=== PATIENT | female | born 1950 | race Caucasian/White ===

== ENCOUNTER 2016-09-07 10:42 | Observation (INO) | payer OTHER, MEDICARE ==
[~2016-09-07] VITALS: Ht 157.5 cm; Wt 77.1 kg
[~2016-09-07 10:42] MED LIST: AMITIZA24 MCG PO; CENTRUM SILVER1 EAC3 PO; CHILDREN'S ASPI81 M1 PO; CRESTOR10 M1 PO; DICLOFENAC SODI75 M1 PO; EPIPEN 2-PAK1 MG/ML IM; FLUTICASONE PRO16 GM NASB; HYDROCHLOROTHIA25 M1 PO; ISOSORBIDE MONO30 M1 PO; MAGNESIUM250 M2 PO; OMEPRAZOLE40 M1 PO; PEPCID40 MG PO; PREDNISONE10 MG PO; SUPER B COMPLE1 EACH PO; VITAMIN D2000 UNI1 PO
--- NOTE | 2016-09-07 10:50 | NUR ---
PT STATES THAT FOR THE PAST WEEK SHE FELT LIKE L SIDE OF FACE WAS SWOLLEN, NOT NOTED AT TRIAGE, ALSO STATES THAT SINCE LAST SATURDAY SHE FEELS NUMBNESS TO L SIDE MOUTH. NEUROS INTACT. PT STATES THAT SHE HAS BEEN UNDER ALOT OF STRESS
--- NOTE | 2016-09-07 11:14 | NUR ---
MONICA RODRÍGUEZ TO BEDSIDE FOR PT EVAL.
[2016-09-07] MEDS ORDERED: AMITIZA24 MC1 PO (11:19)
[2016-09-07] MEDS ORDERED: ATORVASTATIN CA40 M1 PO (11:19)
--- NOTE | 2016-09-07 11:20 | ED NEURO DEFICIT/STROKE ---
History of Present Illness General Chief Complaint: General Adult Stated Complaint: L SIDE FACIAL ?SWELLING Source: patient Exam Limitations: no limitations Vital Signs & Intake/Output Vital Signs & Intake/Output ED Intake and Output 09/10 0000 09/09 1200 Intake Total 400 800 Output Total Balance 400 800 Intake, Oral 400 800 Allergies Coded Allergies: venom-honey bee (Severe, ANAPHYLAXIS 09/07/16) codeine (HIVES 09/07/16) tamoxifen (UNKNOWN 09/07/16) Triage Note: PT STATES THAT FOR THE PAST WEEK SHE FELT LIKE L SIDE OF FACE WAS SWOLLEN, NOT NOTED AT TRIAGE, ALSO STATES THAT SINCE LAST SATURDAY SHE FEELS NUMBNESS TO L SIDE MOUTH. NEUROS INTACT. Triage Nurses Notes Reviewed? yes HPI: This patient is a 66-year-old femalewith a past medical history including hypertension who presented to the emergency department today accompanied by her daughter for evaluation of left-sided facial numbness and tingling. She reported that she first felt tingling near the corner of her mouth last Saturday. She reported that she did not feel the tingling again until today. She reported to the area feels numb and she has been drooling. The patient denied any headaches. No trauma. The patient reported that she does get blurry vision at the end of the day which is baseline for her. She also reported baseline chest pain and shortness of breath. She does have a pacemaker. The patient denied any arm pain. She did report some numbness and tingling in her left arm. The patient denied any abdominal pain, nausea, vomiting, palpitations, jaw pain, back pain, or any other associated symptoms. (MARCELLA ANN,MARCOS) Reconcile Medications Aspirin (Children's Aspirin) 81 MG TAB.CHEW 1 TAB PO DAILY HEART HEALTH ( Reported) Atorvastatin Calcium 40 MG TABLET 1 TAB PO DAILY CHOLESTEROL (Reported) B Complex With Vitamin C (Super B Complex-Vitamin C) 1 EACH TABLET 1 TAB PO DAILY SUPPLEMENT (Reported) Cholecalciferol (Vitamin D3) (Vitamin D) 2,000 UNIT TABLET 1 TAB PO DAILY SUPPLEMENT (Reported) Epinephrine 0.3 MG/0.3 ML AUTO.INJCT 1 INJ IM AD PRN ANAPHALAXIS (Reported) Fluticasone Propionate 50 MCG/ACTUATION SPRAY.SUSP 2 SPRAY NASB DAILY ALLERGIES (Reported) Hydrochlorothiazide 25 MG TABLET 1 TAB PO DAILY WATER PILL (Reported) Isosorbide Mononitrate (Isosorbide Mononitrate ER) 30 MG TAB.ER.24H 1 TAB PO DAILY HEART (Reported) Lubiprostone (Amitiza) 24 MCG CAPSULE 1 CAP PO BID GI (Reported) Magnesium Oxide (Magnesium) 250 MG TABLET 1 TAB PO DAILY SUPPLEMENT (Reported ) Multivit-Min/FA/Lycopen/Lutein (Centrum Silver Tablet) 0.4 MG-300 MCG-250 MCG TABLET 1 TAB PO DAILY SUPPLEMENT (Reported) Omeprazole 40 MG CAPSULE.DR 1 CAP PO DAILY GI (Reported) Prednisone 20 MG TABLET 3 TAB PO DAILY nerve swelling (bells palsy) (SHADIA MIX,NEVAEH) Past History Travel History Traveled to [place] past 21 day No Medical History Any Pertinent Medical History? 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 No (MARCOS NARANJO PA-C) Review of Systems Review of Systems Constitutional: Reports: no symptoms. EENTM: Reports: no symptoms. Respiratory: Reports: see HPI. Cardiovascular: Reports: see HPI. GI: Reports: no symptoms. Genitourinary: Reports: no symptoms. Musculoskeletal: Reports: no symptoms. Skin: Reports: no symptoms. Neurological/Psychological: Reports: see HPI. All Other Systems: Reviewed and Negative (MARCOS NARANJO PA-C) Physical Exam Physical Exam General Appearance: well developed/nourished, no apparent distress, alert, awake Cranial Nerves: normal hearing, normal speech, PERRL Comments: Well-developed well-nourished person in no acute distress HEENT: Normal EENT exam, head normocephalic/atraumatic, moist mucous membranes PERRLA bilaterally. EOMI bilaterally with no nystagmus Neck: Supple, no lymphadenopathy Back: Normal gait Cardiovascular: Regular rate and rhythm with no murmurs, rubs, or gallops Respiratory: Chest nontender. No respiratory distress. Breath sounds clear to auscultation bilaterally with no wheezes, rales, or rhonchi Extremity: Normal and equal pulses. Capillary refill less than 2 seconds Neuro: Alert oriented x3, motor sensory normal, cranial nerves II through XII grossly intact. No aphasia. No facial droop. No unilateral weakness. 5 out of 5 muscular strength in all extremities. No pronator drift Skin: No appreciable rash on exposed skin, skin is warm and dry. Psych: Mood and affect is normal Core Measures CVA/TIA Diagnosis: No Severe Sepsis Present: No Septic Shock Present: No (MARCELLA ANN,MARCOS) Progress Differential Diagnosis: Azevedo's Palsy, drug intoxication, electrolyte imbalance, encephalitis, hypoglycemia, intracranial Hem., intracranial mass/tumor, seizure disorder, stroke, subarachnoid Hem., paresthesia, B12 deficiency Plan of Care: Orders Procedure Date/time Status Discharge Patient 09/09 UNK Active Diagnostic Imaging: Viewed by Me: CT Scan, Ultrasound. Discussed w/RAD: CT Scan, Ultrasound. Radiology Impression: PATIENT: HAYDEN DE PAZ PRESENT AGE: 66 PATIENT ACCOUNT NO: [id number] : 48 LOCATION: [facility] ORDERING PHYSICIAN: MARCOS NARANJO PA-C SERVICE DATE: 09/07/161115 EXAM TYPE: CAT - CT HEAD WO IV CONTRAST EXAMINATION: CT HEAD WITHOUT CONTRAST CLINICAL INFORMATION: Left-sided facial numbness. Rule out intracranial hemorrhage or mass. COMPARISON: CT head of 07/16/2011. TECHNIQUE: Contiguous axial imaging was performed from the skull base to vertex without intravenous administration of contrast. DLP: 600.71 mGy-cm FINDINGS: There is no evidence of acute intracranial hemorrhage or territorial infarction. No abnormal mass effect or midline shift is seen. Dalal to white matter differentiation is well preserved. No extra-axial fluid collections are identified. The ventricles are normal in size. Bilateral periventricular and subcortical white matter patchy low-attenuation regions are noted, most likely representing sequelae of chronic microangiopathy. A 0.5 cm hypodense lesion in the right basal ganglia (series 2, image 22) may represent a chronic lacunar infarct or a dilated perivascular CSF space. The osseous structures and soft tissues are normal. The mastoid air cells and visualized portions of the paranasal sinuses are well aerated. IMPRESSION: 1. No acute intracranial abnormality, specifically there is no evidence of acute intracranial hemorrhage or territorial infarction. 2. White matter changes of mild chronic microangiopathy. DICTATED BY: PRANAV ORELLANA MD DATE/TIME DICTATED:1157 BINDERY LEADPERSON:MARTHA DATE/TIME TRANSCRIBED:09/07/161157 CONFIDENTIAL, DO NOT COPY WITHOUT APPROPRIATE AUTHORIZATION. <Electronically signed in Other Vendor System> SIGNED BY: PRANAV ORELLANA MD 09/07/16 1212, PATIENT: HAYDEN DE PAZ PRESENT AGE: 66 PATIENT ACCOUNT NO: [id number] : 48 LOCATION: [facility] ORDERING PHYSICIAN: MARCOS NARANJO PA-C SERVICE DATE: 09/07/16 EXAM TYPE: US - US-CAROTID- VERTEBRAL DOPPLER EXAMINATION: DUPLEX BILATERAL CAROTID ULTRASOUND CLINICAL INFORMATION: Left facial numbness. COMPARISON: None. TECHNIQUE: Real-time ultrasound and Doppler techniques (integrating B-mode 2D vascular images, Doppler spectral analysis and color flow Doppler imaging) were utilized to interrogate the extracranial carotid and vertebral arteries bilaterally. FINDINGS: Right side: 1. There is mild hyperechoic plaque in the ECA/ICA region. 2. The common carotid artery velocity is 80 cm/s. 3. The proximal internal carotid artery velocities are 57 cm/s systolic and 17 cm/s diastolic. 4. The external carotid artery velocity is 73 cm/s. Left side: 1. There is mild hyperechoic plaque in the ECA/ICA region. 2. The common carotid artery velocity is 77 cm/s. 3. The proximal internal carotid artery velocities are 98 cm/s systolic and 41 cm/s diastolic. 4. The external carotid artery velocity is 71 cm /s. ADDITIONAL FINDINGS: 1. The vertebral arteries show antegrade flow. 2. The brachial artery pressures are symmetric. IMPRESSION: 1. RIGHT: Minimal, nonhemodynamically significant stenosis of the proximal right internal carotid artery corresponding to a 0-49% stenosis by velocity criteria. 2. LEFT: Minimal, nonhemodynamically significant stenosis of the proximal left internal carotid artery corresponding to a 0-49% stenosis by velocity criteria. 3. Antegrade flow is seen via the bilateral vertebral arteries. DICTATED BY: NADEGE HERMAN MD DATE /TIME DICTATED:09/07/161522 BINDERY LEADPERSON:MARTHA DATE/TIME TRANSCRIBED: 09/07/161522 CONFIDENTIAL, DO NOT COPY WITHOUT APPROPRIATE AUTHORIZATION. < Electronically signed in Other Vendor System> SIGNED BY: NADEGE HERMAN MD 09/07/16 1690 Initial ED EKG: normal axis, no ST T wave changes, ATRIAL PACED, 60 BPM Comments: 09/07/2016 1:23:03 PM: I discussed this patient with Dr. Reyna. He is having an and left-sided facial numbness and reported left hand numbness and tingling, would like to keep this patient as an observation for a neurology consultation. 09/07/2016 1:26:06 PM: I discussed this patient with case management. He reported this patient does seem to fit criteria for a telemetry/neuro observation for further evaluation. He does not believe this patient will need admission criteria. He reported that he will be in to speak to the patient about this momentarily. 09/07/2016 2:38:23 PM: I spoke to on-call neurologist, Dr. Guzman. He suggested getting carotid Dopplers and he will see this patient for a consultation in the morning. (MARCOS NARANJO PA-C) Departure Departure Disposition: STILL A PATIENT Condition: Stable Clinical Impression Primary Impression: Left facial numbness Referrals: BERNADETTE FISHER MD (PCP/Family) Departure Forms: Customer Survey General Discharge Information Observation Note Spoke With: TIGIST BAUMANN MD Physician Advisor Notified: PHANI MIX,BALJINDER Paz Place Patient In: Non-ED OBS Care Area Rationale for Observation: My rational for observation is as follows [this patient is a 66-year-old female who presented to the emergency department today for evaluation of left facial numbness. And observation for further evaluation, neurology consultation, transient labs, and close monitoring.]. (MARCOS NARANJO PA-C) Departure Prescriptions: Current Visit Scripts Prednisone 3 TAB PO DAILY #21 TAB PA/DIGITAL COORDINATOR Co-Sign Statement Statement: ED Attending supervision documentation- [X] I saw and evaluated the patient. I have also reviewed all the pertinent lab results and diagnostic results. I agree with the findings and the plan of care as documented in the PA's/DIGITAL COORDINATOR's documentation. [X] I have reviewed the ED Record and agree with the PA's/DIGITAL COORDINATOR's documentation. [] Additions or exceptions (if any) to the PAs/DIGITAL COORDINATOR's note and plan are summarized below: [] (SHADIA MIX,NEVAEH) (Motrin) Ketorolac 7.5 MG Q6P PRN 09/07 1815 AC Tromethamine (Toradol) Laboratory Tests 09/07/16 1120: Troponin I Cancelled 09/07/16 1120: Anion Gap 9, Estimated GFR > 60, BUN/Creatinine Ratio 30.0 H, Glucose 104 H, Calcium 9.5, Total Bilirubin 0.3, AST 25, ALT 38, Alkaline Phosphatase 66, Troponin I < 0.01, Rmv-[id number]-[id number] Pept 156 H, Total Protein 6.8, Albumin 4.0 , Globulin 2.8, Albumin/Globulin Ratio 1.4, Vitamin B12 969 H, TSH 1.250, Free T4 0.94, CBC w Diff NO MAN DIFF REQ, RBC 4.79, MCV 87.8, MCH 29.2, RDW 14.2, MPV 7.1 L, Gran % 60.1, Lymphocytes % 28.5, Monocytes % 8.2, Eosinophils % 2.7, Basophils % 0.5, Absolute Granulocytes 3.9, Absolute Lymphocytes 1.9, Absolute Monocytes 0.5, Absolute Eosinophils 0.2, Absolute Basophils 0, PUBS MCHC 33.3 09/07/16 1115: Vitamin B12 Cancelled Diagnostic Imaging: Viewed by Me: CT Scan, Ultrasound. Discussed w/RAD: CT Scan, Ultrasound. Radiology Impression: PATIENT: HAYDEN DE PAZ PRESENT AGE: 66 PATIENT ACCOUNT NO: [id number] : 48 LOCATION: [facility] ORDERING PHYSICIAN: MARCOS NARANJO PA-C SERVICE DATE: 09/07/16 EXAM TYPE: CAT - CT HEAD WO IV CONTRAST EXAMINATION: CT HEAD WITHOUT CONTRAST CLINICAL INFORMATION: Left-sided facial numbness. Rule out intracranial hemorrhage or mass. COMPARISON: CT head of 07/16/2011. TECHNIQUE: Contiguous axial imaging was performed from the skull base to vertex without intravenous administration of contrast. DLP: 600.71 mGy-cm FINDINGS: There is no evidence of acute intracranial hemorrhage or territorial infarction. No abnormal mass effect or midline shift is seen. Dalal to white matter differentiation is well preserved. No extra-axial fluid collections are identified. The ventricles are normal in size. Bilateral periventricular and subcortical white matter patchy low-attenuation regions are noted, most likely representing sequelae of chronic microangiopathy. A 0.5 cm hypodense lesion in the right basal ganglia (series 2, image 22) may represent a chronic lacunar infarct or a dilated perivascular CSF space. The osseous structures and soft tissues are normal. The mastoid air cells and visualized portions of the paranasal sinuses are well aerated. IMPRESSION: 1. No acute intracranial abnormality, specifically there is no evidence of acute intracranial hemorrhage or territorial infarction. 2. White matter changes of mild chronic microangiopathy. DICTATED BY: PRANAV ORELLANA MD DATE/TIME DICTATED:1157 BINDERY LEADPERSON:MARTHA DATE/TIME TRANSCRIBED:09/07/161157 CONFIDENTIAL, DO NOT COPY WITHOUT APPROPRIATE AUTHORIZATION. <Electronically signed in Other Vendor System> SIGNED BY: PRANAV ORELLANA MD 09/07/16 1212, PATIENT: HAYDEN DE PAZ PRESENT AGE: 66 PATIENT ACCOUNT NO: [id number] : 48 LOCATION: [facility] ORDERING PHYSICIAN: MARCOS NARANJO PA-C SERVICE DATE: 09/07/16 EXAM TYPE: US - US-CAROTID- VERTEBRAL DOPPLER EXAMINATION: DUPLEX BILATERAL CAROTID ULTRASOUND CLINICAL INFORMATION: Left facial numbness. COMPARISON: None. TECHNIQUE: Real-time ultrasound and Doppler techniques (integrating B-mode 2D vascular images, Doppler spectral analysis and color flow Doppler imaging) were utilized to interrogate the extracranial carotid and vertebral arteries bilaterally. FINDINGS: Right side: 1. There is mild hyperechoic plaque in the ECA/ICA region. 2. The common carotid artery velocity is 80 cm/s. 3. The proximal internal carotid artery velocities are 57 cm/s systolic and 17 cm/s diastolic. 4. The external carotid artery velocity is 73 cm/s. Left side: 1. There is mild hyperechoic plaque in the ECA/ICA region. 2. The common carotid artery velocity is 77 cm/s. 3. The proximal internal carotid artery velocities are 98 cm/s systolic and 41 cm/s diastolic. 4. The external carotid artery velocity is 71 cm /s. ADDITIONAL FINDINGS: 1. The vertebral arteries show antegrade flow. 2. The brachial artery pressures are symmetric. IMPRESSION: 1. RIGHT: Minimal, nonhemodynamically significant stenosis of the proximal right internal carotid artery corresponding to a 0-49% stenosis by velocity criteria. 2. LEFT: Minimal, nonhemodynamically significant stenosis of the proximal left internal carotid artery corresponding to a 0-49% stenosis by velocity criteria. 3. Antegrade flow is seen via the bilateral vertebral arteries. DICTATED BY: NADEGE HERMAN MD DATE /TIME DICTATED:09/07/161522 BINDERY LEADPERSON:MARTHA DATE/TIME TRANSCRIBED: 09/07/161522 CONFIDENTIAL, DO NOT COPY WITHOUT APPROPRIATE AUTHORIZATION. < Electronically signed in Other Vendor System> SIGNED BY: NDAEGE HERMAN MD 09/07/16 1530 Initial ED EKG: normal axis, no ST T wave changes, ATRIAL PACED, 60 BPM Comments: 09/07/2016 1:23:03 PM: I discussed this patient with Dr. Reyna. He is having an and left-sided facial numbness and reported left hand numbness and tingling, would like to keep this patient as an observation for a neurology consultation. 09/07/2016 1:26:06 PM: I discussed this patient with case management. He reported this patient does seem to fit criteria for a telemetry/neuro observation for further evaluation. He does not believe this patient will need admission criteria. He reported that he will be in to speak to the patient about this momentarily. 09/07/2016 2:38:23 PM: I spoke to on-call neurologist, Dr. Guzman. He suggested getting carotid Dopplers and he will see this patient for a consultation in the morning. Departure Departure Disposition: STILL A PATIENT Condition: Stable Clinical Impression Primary Impression: Left facial numbness Referrals: BERNADETTE FISHER MD (PCP/Family) Departure Forms: Customer Survey General Discharge Information Observation Note Spoke With: TIGIST BAUMANN MD Physician Advisor Notified: PHANI MIX,BALJINDER Paz Place Patient In: Non-ED OBS Care Area Rationale for Observation: My rational for observation is as follows [this patient is a 66-year-old female who presented to the emergency department today for evaluation of left facial numbness. And observation for further evaluation, neurology consultation, transient labs, and close monitoring.].
[2016-09-07] MEDS ORDERED: EPINEPHRIN0.3 MG/0.1 IM (11:23)
[2016-09-07 11:45] LABS: ABSOLUTE BASOPHIL COUNT 0 /CUMM (0.0-0.2); ABSOLUTE EOSINOPHIL COUNT 0.2 /CUMM (0.0-0.7); ABSOLUTE GRANULOCYTE CT 3.9 /CUMM (1.4-6.5); ABSOLUTE LYMPH COUNT 1.9 /CUMM (1.2-3.4); ABSOLUTE MONOCYTE COUNT 0.5 /CUMM (0.10-0.60); BASOPHIL % 0.5 % (0.0-2.0); EOSINOPHIL % 2.7 % (0-5); GRANULOCYTE % 60.1 % (42.2-75.2); HEMATOCRIT 42.1 % (37-47); MEAN CORPUSCULAR HGB 29.2 PG (27.0-31.0); MEAN CORPUSCULAR HGB CONC 33.3 G/DL (33.0-37.0); MEAN CORPUSCULAR VOLUME 87.8 FL (81.0-99.0); MEAN PLATELET VOLUME 7.1 FL (7.4-10.4); PLATELET COUNT 272 /CUMM (130-400); RBC DISTRIBUTION WIDTH 14.2 % (11.5-14.5); RED BLOOD CELL CT 4.79 /CUMM (4.20-5.40); WHITE BLOOD CELL COUNT 6.6 /CUMM (4.8-10.8)
--- NOTE | 2016-09-07 11:51 | NUR ---
PT TO AND FROM CAT SCAN BY STRETCHER. AWAITING RESULTS. EKG IN PROGRESS.
--- NOTE | 2016-09-07 12:12 | CT SCAN REPORT ---
EXAMINATION: CT HEAD WITHOUT CONTRAST CLINICAL INFORMATION: Left-sided facial numbness. Rule out intracranial hemorrhage or mass. COMPARISON: CT head of 07/16/2011. TECHNIQUE: Contiguous axial imaging was performed from the skull base to vertex without intravenous administration of contrast. DLP: 600.71 mGy-cm FINDINGS: There is no evidence of acute intracranial hemorrhage or territorial infarction. No abnormal mass effect or midline shift is seen. Dalal to white matter differentiation is well preserved. No extra-axial fluid collections are identified. The ventricles are normal in size. Bilateral periventricular and subcortical white matter patchy low-attenuation regions are noted, most likely representing sequelae of chronic microangiopathy. A 0.5 cm hypodense lesion in the right basal ganglia (series 2, image 22) may represent a chronic lacunar infarct or a dilated perivascular CSF space. The osseous structures and soft tissues are normal. The mastoid air cells and visualized portions of the paranasal sinuses are well aerated. IMPRESSION: 1. No acute intracranial abnormality, specifically there is no evidence of acute intracranial hemorrhage or territorial infarction. 2. White matter changes of mild chronic microangiopathy.
--- NOTE | 2016-09-07 13:39 | NUR ---
PT RESTING ON STRETCHER, OFFERING NO COMPLAINTS OR NEEDS AT THIS TIME. VSS. AWAITING CASE MANAGEMENT.
--- NOTE | 2016-09-07 15:30 | ULTRASOUND REPORT ---
EXAMINATION: DUPLEX BILATERAL CAROTID ULTRASOUND CLINICAL INFORMATION: Left facial numbness. COMPARISON: None. TECHNIQUE: Real-time ultrasound and Doppler techniques (integrating B-mode 2D vascular images, Doppler spectral analysis and color flow Doppler imaging) were utilized to interrogate the extracranial carotid and vertebral arteries bilaterally. FINDINGS: Right side: 1. There is mild hyperechoic plaque in the ECA/ICA region. 2. The common carotid artery velocity is 80 cm/s. 3. The proximal internal carotid artery velocities are 57 cm/s systolic and 17 cm/s diastolic. 4. The external carotid artery velocity is 73 cm/s. Left side: 1. There is mild hyperechoic plaque in the ECA/ICA region. 2. The common carotid artery velocity is 77 cm/s. 3. The proximal internal carotid artery velocities are 98 cm/s systolic and 41 cm/s diastolic. 4. The external carotid artery velocity is 71 cm/s. ADDITIONAL FINDINGS: 1. The vertebral arteries show antegrade flow. 2. The brachial artery pressures are symmetric. IMPRESSION: 1. RIGHT: Minimal, nonhemodynamically significant stenosis of the proximal right internal carotid artery corresponding to a 0-49% stenosis by velocity criteria. 2. LEFT: Minimal, nonhemodynamically significant stenosis of the proximal left internal carotid artery corresponding to a 0-49% stenosis by velocity criteria. 3. Antegrade flow is seen via the bilateral vertebral arteries.
--- NOTE | 2016-09-07 15:44 | NUR ---
CASE MANAGEMENT TO BEDSIDE.
--- NOTE | 2016-09-07 15:55 | NUR ---
FOOD TRAY PROVIDED TO PT.
--- NOTE | 2016-09-07 16:32 | History & Physical ---
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 She claims that she started having left-sided facial numbness, localized to the angle of the mouth, constant in nature, associated with drooling of saliva, swelling in the cheek, eye lids, facial asymmetry.She also dropped breakfast in morning today. Sometimes she feels nauseated. She was also feeling that her legs were swollen since last 1 day. Denies recent ear infection, sinusitis, changes in the hearing , changes in the vision, episodes of loss of consciousness, seizures, weakness in any part of the body, neck pain,bumps in the neck or axilla, incontinence of stool and urine, chest pain, shortness of breath. She also states that she had episodes of dizziness, lightheadedness and tendency to fall towards the left side since May 2016. Even she had one episode of tripping and falling in May, but she did not had any trauma. She also had episodes of tingling and numbness in the left hand and it was told by her oncologist. 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 She also has episodes of blurry vision which increase at the end of the day.She uses 3 pillows regularly, she feels SOB after rising stairs and on lying down. Family history -hypertension in both parents Personal history -socially drinks alcohol, no smoking Allergies/Medications Allergies: Coded Allergies: venom-honey bee (Severe, ANAPHYLAXIS 09/07/16) codeine (HIVES 09/07/16) tamoxifen (UNKNOWN 09/07/16) Past History Travel History Traveled to [place] past 21 day No Medical History Neurological: NONE EENT: NONE Cardiovascular: hypertension, hyperlipidemia Respiratory: NONE Gastrointestinal: GERD Hepatic: NONE Renal: NONE Musculoskeletal: NONE Psychiatric: NONE Endocrine: NONE Blood Disorders: NONE Cancer(s): breast cancer Surgical History Surgical History: hernia repair-incisional, hysterectomy, lumpectomy, pacemaker Past Family/Social History Family History Relations & Conditions if any FATHER MOTHER Relation not specified for: FHx: hypertension Psychosocial History Services at Home: None Smoking Status: Never Smoked ETOH Use: occasional use Illicit Drug Use: denies illicit drug use Functional Ability ADLs Independent: dressing, eating, toileting, bathing. Review of Systems Review of Systems Constitutional: Reports: weakness. Denies: fever. EENTM: Reports: blurred vision. Denies: eye pain, eye drainage. Cardiovascular: Reports: edema, orthopena, palpitations, peripheral edema. Denies: chest pain. Respiratory: Denies: no symptoms. GI: Denies: no symptoms. Genitourinary: Denies: no symptoms. Skin: Reports: change in skin color. Neurological/Psychological: Reports: numbness, paresthesia, tingling. Denies: anxiety. Exam & Diagnostic Data Last 24 Hrs of Vital Signs/I&O Vital Signs Date Time Temp Pulse Resp B/P Pulse O2 O2 Flow FiO2 Ox Delivery Rate 09/07 1817 98.0 61 18 170/92 95 Room Air 09/07 1339 96.4 60 18 159/97 97 Room Air 09/07 1047 97.3 68 18 167/91 98 Room Air Intake & Output 09/07 1600 09/07 0800 09/07 0000 Intake Total Output Total Balance Patient 77.111 kg Weight Physical Exam General Appearance Alert, Oriented X3, Cooperative, No Acute Distress Skin No Rashes, No Breakdown Cardiovascular Normal S1, Normal S2, murmur present Lungs Clear to Auscultation, Normal Air Movement Abdomen Soft, No Tenderness Neurological Normal Speech, decreased sensation and left angle of the lip and surounding 1 - 2 inches Extremities No Clubbing, No Cyanosis, mild pitting edema Vascular Normal Pulses, Pulses Symmetrical Last 24 Hrs of Labs/Stan: Laboratory Tests 09/07/16 1120: Troponin I Cancelled 09/07/16 1120: Anion Gap 9, Estimated GFR > 60, BUN/Creatinine Ratio 30.0 H, Glucose 104 H, Calcium 9.5, Total Bilirubin 0.3, AST 25, ALT 38, Alkaline Phosphatase 66, Troponin I < 0.01, Fmj-W-Rkfknzokvud Pept 156 H, Total Protein 6.8, Albumin 4.0 , Globulin 2.8, Albumin/Globulin Ratio 1.4, Vitamin B12 969 H, TSH 1.250, Free T4 0.94, CBC w Diff NO MAN DIFF REQ, RBC 4.79, MCV 87.8, MCH 29.2, RDW 14.2, MPV 7.1 L, Gran % 60.1, Lymphocytes % 28.5, Monocytes % 8.2, Eosinophils % 2.7, Basophils % 0.5, Absolute Granulocytes 3.9, Absolute Lymphocytes 1.9, Absolute Monocytes 0.5, Absolute Eosinophils 0.2, Absolute Basophils 0, PUBS MCHC 33.3 09/07/16 1115: Vitamin B12 Cancelled Diagnostic Data EKG Results EKG - Atrial pacing,LBBB, Assessment/Plan Assessment: Patient is a 66-year-old female with significant past medical history of breast cancer s/p lumpectomy and RT, hypertension, hyperlipidemia, 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 EKG - Atrial pacing,LBBB CT scan of the head -No any acute intracranial abnormality,mild chronic microangiopathy Carotid Doppler study -no any critical stenosis Assessment and plan - Left-sided facial numbness under evaluation - * We will observe the patient in telemetry for next 24-hour * Neuro check every 4 hourly * ED already talked to Dr Guzman over the phone, he will come and see the patient tomorrow * CT scan/carried Doppler does not show any acute intracranial abnormality and obstruction * We'll continue tab Aspirin 81mg PO OD Hypertension - * We will continue tab Hydrochlorothiazide 25 mgs PO OD Hyperlipidemia - * We'll continue tablet atorvastatin 40mg HS Diet -heart healthy diet DVT prophylaxis -ALP S/heparin CODE STATUS -full code As Ranked By This Provider Problem List: 1. Left facial numbness 2. Falling episodes 3. Dizziness Core Measures/Miscellaneous Acute Coronary Syndrome ACS Diagnosis: No Cerebrovascular Accident CVA/TIA Diagnosis: No Congestive Heart Failure CHF Diagnosis: No Venous Thromboembolism VTE Risk Factors: Age > 40, Cancer/chemo/oth therapy, Obesity No Mech VTE prophylaxis d/t: No contraindications No VTE Pharm Prophylaxis d/t: No contraindications VTE Diagnosis: No VTE Type: NONE VTE Confirmed by (Test): NONE Severe Sepsis Severe Sepsis Present: No Septic Shock Septic Shock Present: No Miscellaneous Documentation Attending Case Discussed With: TIGIST BAUMANN MD Primary Care Physician: BERNADETTE FISHER MD Patient sees these Specialists Dr. Carlee Hanks Level of Patient Care: Telemetry JERAMY COLBERT 09/07/16 1711: General Information and HPI Allergies/Medications Home Med list Aspirin (Children's Aspirin) 81 MG TAB.CHEW 1 TAB PO DAILY HEART HEALTH ( Reported) Atorvastatin Calcium 40 MG TABLET 1 TAB PO DAILY CHOLESTEROL (Reported) B Complex With Vitamin C (Super B Complex-Vitamin C) 1 EACH TABLET 1 TAB PO DAILY SUPPLEMENT (Reported) Cholecalciferol (Vitamin D3) (Vitamin D) 2,000 UNIT TABLET 1 TAB PO DAILY SUPPLEMENT (Reported) Epinephrine 0.3 MG/0.3 ML AUTO.INJCT 1 INJ IM AD PRN ANAPHALAXIS (Reported) Fluticasone Propionate 50 MCG/ACTUATION SPRAY.SUSP 2 SPRAY NASB DAILY ALLERGIES (Reported) Hydrochlorothiazide 25 MG TABLET 1 TAB PO DAILY WATER PILL (Reported) Isosorbide Mononitrate (Isosorbide Mononitrate ER) 30 MG TAB.ER.24H 1 TAB PO DAILY HEART (Reported) Lubiprostone (Amitiza) 24 MCG CAPSULE 1 CAP PO BID GI (Reported) Magnesium Oxide (Magnesium) 250 MG TABLET 1 TAB PO DAILY SUPPLEMENT (Reported ) Multivit-Min/FA/Lycopen/Lutein (Centrum Silver Tablet) 0.4 MG-300 MCG-250 MCG TABLET 1 TAB PO DAILY SUPPLEMENT (Reported) Omeprazole 40 MG CAPSULE.DR 1 CAP PO DAILY GI (Reported) Resident Review Statement Resident Statement: examined this patient, discussed with chief internal auditor, reviewed EMR data (avail), reviewed images Other Findings: This is a 66 years old lady with past medical history of hypertension, seen, tick to bradycardia status post permanent pacemaker placement, breast cancer status post lumpectomy and chemotherapy and radiotherapy who presented with one- week history of number numbness on the left side of the face predominantly on the cheek and on the left angle of the mouth which is accompanied with a sense of heaviness. She reports that the symptoms has been on and off and they recurred again today and thus why she presented to the ER. She has never experienced this kind of symptoms in the past. She denies weakness on any of her extremities change in voice stable vision headache aspirations though she volunteers drooling through the angle of the mouth on the left. She also reports that since May she has noted that she is off balance more than usual she once fell but attributed this to a trip. She denies any headache but reports ringing sensation in the ears without sense of spinning around the room. Vitals on arrival febrile 97.3 heart rate of 68 respiration 18 blood pressure 167/91 98% on room air Physical examination: Not in acute distress alert and oriented to time place and person very cooperative HEENT: Pupils are equal reacting to light there is no obvious facial droop, wet mucous membranes Neurological: Cranial nerves II through XII within normal limits, extraocular muscles intact, power 5 over out of 5 in both upper and lower extremities, slight decrease in sensation on the left angle of the mouth. CVS: RRR, normal S1-S2 no murmurs RS; clear lungs bilaterally Abdomen: Obese abdomen normal bowel sounds Extremities: No edema cyanosis or clubbing Labs: Normal white count 6.6 slightly increased BUN of 18, rest of the blood work within normal limits Imaging: CT head no acute changes to suggest ischemia or hemorrhage Carotid Doppler: 0-49% stenosis bilaterally, nonhemodynamically significant stenosis Assessment and plan Problem list Transient ischemic attack Hypertension We will place the patient to the telemetry observation, vitals every shift, cardiac monitoring Echocardiogram PT evaluation Formal Swallow evaluation Lipid panel Restart patient hypertension medication hydrochlorothiazide 25 mg Continue omeprazole for GERD TIGIST BAUMANN MD 09/08/16 1643: Attending MD Review Statement Attending Statement Attending MD Statement: examined this patient, discuss w/resident/PA/FLOW SPECIALIST, agreed w/resident/PA/FLOW SPECIALIST, reviewed EMR data (avail) Attending Assessment/Plan: 66F PMH bradycadia s/p PPM, history of left breast cancer s/p mastectomy, HTN, HLD with 1 day onset of left facial droop and weakness. Reports tremor of the left hand which is chronic. Denies headache, palpitations, chest pain, visual changes, motor weakness, sensory weakness. Neuro exam shows left sided facial droop, swallow intact, remaining cranial nerve exam normal, sensory and motor exam normal. CT head negative. Unable to obtain MRI due to pacemaker. Plan - Observation in telemetry - Neurology consult - ASA and high dose statin - Obtain echocardiogram and carotid doppler - Continue home medications - DVT PPx
--- NOTE | 2016-09-07 18:46 | NUR ---
REPORT GIVEN TO GHAZAL BOYER TO [facility]. [facility] CALLED FOR TRANSPORT.
[2016-09-07 20:31] VITALS: BP 132/90
[2016-09-07 23:05] VITALS: BP 134/90
[2016-09-08 08:19] LABS: BASOPHIL % 0.5 % (0.0-2.0); EOSINOPHIL % 3.5 % (0-5); HEMATOCRIT 42.2 % (37-47); MEAN CORPUSCULAR HGB 29.3 PG (27.0-31.0); MEAN CORPUSCULAR HGB CONC 33.1 G/DL (33.0-37.0); MEAN CORPUSCULAR VOLUME 88.3 FL (81.0-99.0); MEAN PLATELET VOLUME 7.8 FL (7.4-10.4); PLATELET COUNT 250 /CUMM (130-400); RED BLOOD CELL CT 4.78 /CUMM (4.20-5.40); WHITE BLOOD CELL COUNT 5.9 /CUMM (4.8-10.8)
[2016-09-08 08:23] VITALS: BP 144/90
--- NOTE | 2016-09-08 08:49 | PN- Housestaff ---
EMMETT RUDD 09/08/16 0848: Subjective Follow-up For: Left-sided facial numbness Complaints: no complaints Tele-Events Since Last Visit: Single pacing, heart rate 60s. No overnight telemetry events were noted. Subjective: The patient was comfortable this morning. Still complains of heaviness/numbness on the left side of the face. No lightheadedness, vision changes. Review of Systems Constitutional: Reports: see HPI. Objective Last 24 Hrs of Vital Signs/I&O Vital Signs Date Time Temp Pulse Resp B/P Pulse O2 O2 Flow FiO2 Ox Delivery Rate 09/08 0823 98.4 61 20 144/90 95 Room Air 04 0000 95 Room Air 09/07 2305 97.8 60 20 134/90 95 Room Air 09/07 2031 97.7 60 20 132/90 95 Room Air 09/07 1817 98.0 61 18 170/92 95 Room Air 09/07 1339 96.4 60 18 159/97 97 Room Air 09/07 1047 97.3 68 18 167/91 98 Room Air Intake & Output 09/08 1600 09/08 0800 09/08 0000 Intake Total 480 460 Output Total Balance 480 460 Intake, IV 10 Intake, Oral 480 450 Number 0 Bowel Movements Patient 170 lb Weight Physical Exam General Appearance: No Acute Distress Other Physical Findings: General Exam: AAOx3, No acute distress, Skin: No rashes, no breakdown HEENT: PERRLA, EOMI Neck: Supple, No JVD No cervical lymphadenopathy CVS: Reg Rate, Normal S1,S2, No MGR Resp: Normal air entry, no ronchi/rales Abdomen: Soft, No tenderness, Normal Bowel Sounds Neuro: Normal Speech, Strength 5/5 b/l x 4 extremities, Sensation intact, CN III -XII NL, Reflexes 2+, no facial droop Extremities: No cyanosis, pedal edema Current Medications: Current Medications Sig/Isabel Start time Last Medication Dose Route Stop Time Status Admin Acetaminophen 650 MG Q6P PRN 09/07 1815 AC PO Ascorbic Acid 250 MG DAILY 09/08 1000 AC PO Aspirin 81 MG DAILY 09/08 1000 AC PO Atorvastatin Calcium 40 MG 1700 09/08 1700 AC PO Cholecalciferol 2,000 IU DAILY 09/08 1000 AC PO Enoxaparin Sodium 40 MG DAILY 09/08 1000 AC SC Fluticasone 2 SPRAY DAILY 09/08 1000 AC Propionate MANUELA Hydrochlorothiazide 25 MG DAILY 09/08 1000 AC PO Ibuprofen 600 MG Q6P PRN 09/07 1814 AC PO Isosorbide 30 MG DAILY 09/08 1000 AC Mononitrate PO Ketorolac 7.5 MG Q6P PRN 09/07 1814 AC Tromethamine IV Lubiprostone 24 MCG BID 09/07 2200 AC 09/07 PO 2138 Magnesium Oxide 400 MG DAILY 09/08 1000 AC PO Multivitamins 1 TAB DAILY 09/08 1000 AC PO Omeprazole 40 MG DAILY AC 09/08 0700 AC 09/08 PO 0627 Last 24 Hrs of Lab/Stan Results Last 24 Hrs of Labs/Mics: Laboratory Tests 09/08/16 0610: Anion Gap 8, Estimated GFR > 60, BUN/Creatinine Ratio 25.0, Triglycerides 183 H , Cholesterol 193, LDL Cholesterol, Calc 110, HDL Cholesterol 47, Cholesterol/ HDL Ratio 4, CBC w Diff Pending, WBC Pending, RBC Pending, Hgb Pending, Hct Pending, MCV Pending, MCH Pending, RDW Pending, Plt Count Pending, MPV Pending, PUBS MCHC Pending 09/07/16 1120: Troponin I Cancelled 09/07/16 1120: Anion Gap 9, Estimated GFR > 60, BUN/Creatinine Ratio 30.0 H, Glucose 104 H, Calcium 9.5, Total Bilirubin 0.3, AST 25, ALT 38, Alkaline Phosphatase 66, Troponin I < 0.01, Qcg-V-Jinryhnoyix Pept 156 H, Total Protein 6.8, Albumin 4.0 , Globulin 2.8, Albumin/Globulin Ratio 1.4, Vitamin B12 969 H, TSH 1.250, Free T4 0.94, CBC w Diff NO MAN DIFF REQ, RBC 4.79, MCV 87.8, MCH 29.2, RDW 14.2, MPV 7.1 L, Gran % 60.1, Lymphocytes % 28.5, Monocytes % 8.2, Eosinophils % 2.7, Basophils % 0.5, Absolute Granulocytes 3.9, Absolute Lymphocytes 1.9, Absolute Monocytes 0.5, Absolute Eosinophils 0.2, Absolute Basophils 0, PUBS MCHC 33.3 09/07/16 1115: Vitamin B12 Cancelled Assessment/Plan Assessment: She is an older lady with a past history of breast cancer status post lumpectomy and RT, pacemaker (PPM-symptomatic bradycardia after RT) hypertension, hyperlipidemia is being evaluated for left-sided facial numbness 7 days prior to admission. At the time of admission, temperature 97.3, pulse rate 68, respiration 18, blood pressure 167/91, 98% on room air. Laboratory findings indicated no leukocytosis WBC 6.6, hemoglobin 14.0, hematocrit 42.1, platelets 272. Electrolytes-sodium 142, potassium 3.9, BUN 18, serum creatinine 0.6. Neurological findings-CT head did not reveal any acute intracranial abnormality especially bleeding/ischemia. Chronic mild microangiopathic was noted. Carotid Doppler-did not reveal any significant stenosis. Differential diagnosis: #1 TIA/stroke #2 Lyme's disease #3 Azevedo's palsy Below is the problem list and plan: #1 left-sided facial weakness/droopiness- patient still has symptoms, improved overall. TIA/stroke in the differentials. CAT scan was unremarkable. MRI was not done. Treat with aspirin, high intensity statin at this time. Await neurologist advice. Although Azevedo's palsy is in the differential, would await evaluation by the neurologist. Would not start prednisone at this time. Lyme antibody pending at this time. Await echocardiogram. Did not have any abnormal /overnight telemetry events. Formal Swallow eval-pending. PT eval pending at this time. #2 hypertension,-continue home dose of hydrochlorothiazide, isosorbide mononitrate. If kidney function is abnormal or patient continues to be hypertensive may discontinue all NSAIDs at that time. #3 DVT prophylaxis-Lovenox. #4 discharge disposition-to be discharged in the a.m. Problem List: 1. Falling episodes 2. Left facial numbness Pain Ratin Pain Location: Back Pain Goal: Pain 4 or less Pain Plan: Tylenol when necessary Tomorrow's Labs & Rationales: No labs necessary. Currently stable. DVT/Prophylaxis: pharmacological Discharge Plan Discharge Disposition: home Stable for Discharge? Yes Anticipated Discharge (Day): tomorrow TIGIST BAUMANN MD 09/08/16 3077: Attending MD Review Statement Attending Statement Attending MD Statement: examined this patient, discuss w/resident/PA/PRESENTATION MANAGER, agreed w/resident/PA/PRESENTATION MANAGER, reviewed EMR data (avail) Attending Assessment/Plan: 66F PMH bradycadia s/p PPM, history of left breast cancer s/p mastectomy, HTN, HLD with 1 day onset of left facial droop and weakness. Reports tremor of the left hand which is chronic. Denies headache, palpitations, chest pain, visual changes, motor weakness, sensory weakness. Neuro exam shows left sided facial droop, swallow intact, remaining cranial nerve exam normal, sensory and motor exam normal. CT head negative. Unable to obtain MRI due to pacemaker. Plan - Observation in telemetry - Neurology consult - ASA and high dose statin - Obtain echocardiogram and carotid doppler - Continue home medications - DVT PPx
[2016-09-08 08:56] LABS: ABSOLUTE BASOPHIL COUNT 0 /CUMM (0.0-0.2); ABSOLUTE EOSINOPHIL COUNT 0.2 /CUMM (0.0-0.7); ABSOLUTE GRANULOCYTE CT 3.4 /CUMM (1.4-6.5); ABSOLUTE LYMPH COUNT 1.7 /CUMM (1.2-3.4); ABSOLUTE MONOCYTE COUNT 0.5 /CUMM (0.10-0.60); GRANULOCYTE % 57.8 % (42.2-75.2)
--- NOTE | 2016-09-08 12:50 | NUR ---
Chart reviewed. Pt approached for PT eval x2. She was alert enough to answer questions or participate in session. Nurse notes that she has not been very alert. Eval canceled for today. Will cont to follow in order to complete as eval.
[2016-09-08 16:00] VITALS: BP 130/72
[2016-09-09 01:07] VITALS: BP 130/70
[2016-09-09 08:42] VITALS: BP 143/88
[2016-09-09 09:00] VITALS: BP 140/84
--- NOTE | 2016-09-09 10:18 | NUR ---
PT eval canceled. Pt not alert enough to participate in session today. She was very tired and could not wake up. Daughter present and stated that her mother has been very tired. She has been peforming PROM to her mother's joints. Therapist encouraged daughter to cont doing this. Will cont to follow in order to complete eval as appropriate.
[2016-09-09] MEDS ORDERED: LIPITOR80 M1 PO (12:12)
--- NOTE | 2016-09-09 12:16 | Patient Discharge Instructions ---
Discharge Instructions General Discharge Information You were seen/treated for: TIA Special Instructions: Please follow up with your PCP () in a week Please follow up with in a week Diet Continue normal diet: Yes Activity Activity Self Limited: Yes Acute Coronary Syndrome Inclusion Criteria At DC or during hospital stay patient has or had the following: ACS DIAGNOSIS No Discharge Core Measures Meds if any: Prescribed or Continued at Discharge Meds if any: NOT Prescribed or Continued at Discharge Congestive Heart Failure Inclusion Criteria At DC or during hospital stay patient has or had the following: CHF DIAGNOSIS No Discharge Core Measures Meds if any: Prescribed or Continued at Discharge Meds if any: NOT Prescribed or Continued at Discharge Cerebrovascular accident Inclusion Criteria At DC or during hospital stay patient has or had the following: CVA/TIA Diagnosis Yes Discharge Core Measures Meds if any: Prescribed or Continued at Discharge Statin (required if LDL =>70) Yes Anticoagulant Yes Meds if any: NOT Prescribed or Continued at Discharge Venous thromboembolism Inclusion Criteria VTE Diagnosis No VTE Type NONE VTE Confirmed by (Test) NONE Discharge Core Measures - Per Current guidelines, there needs to be overlap - treatment for the first 5 days of Warfarin therapy. - If discharged on Warfarin prior to 5 days of - overlap therapy, the patient will need to be - assessed for post discharge needs including - *Post discharge parental anticoagulation - *Warfarin and/or parental anticoagulation education - *Follow up date to check INR post discharge At least 5 days overlap therapy as Inpatient No Meds if any: Prescribed or Continued at Discharge Note: Overlap Therapy is Warfarin and Anticoagulant Meds if any: NOT Prescribed or Continued at Discharge
[2016-09-09] MEDS ORDERED: PREDNISONE20 M1 PO ×2 (12:21→12:31)
--- NOTE | 2016-09-09 14:23 | PN- Att Addend ---
Attending Addendum Attending Brief Note 66F PMH bradycadia s/p PPM, history of left breast cancer s/p mastectomy, HTN, HLD with 1 day onset of left facial droop and weakness. Reports tremor of the left hand which is chronic. Denies headache, palpitations, chest pain, visual changes, motor weakness, sensory weakness. Neuro exam shows left sided facial droop, swallow intact, remaining cranial nerve exam normal, sensory and motor exam normal. CT head negative. Unable to obtain MRI due to pacemaker. Today, facial droop is significantly improved, as is facial swelling. She has no neurological complaints. She feels very well. Vitals stable, labs and imaging reviewed. AFVSS NAD Mild left facial droop, no sensory abnormalities, remaining cranial nerves grossly intact, no extremity weakness, sensation normal, normal gait Supple RRR CTAB Soft, NTND No c/c/e A&Ox3, see above for neuro exam Current Medications Sig/Isabel Start time Last Medication Dose Route Stop Time Status Admin Acetaminophen 650 MG Q6P PRN 09/07 1815 AC PO Ascorbic Acid 250 MG DAILY 09/08 1000 AC 09/09 PO 0900 Aspirin 81 MG DAILY 09/08 1000 AC 09/09 PO 0900 Atorvastatin Calcium 80 MG 1700 09/09 1700 AC PO Atorvastatin Calcium 40 MG 1700 09/08 1700 DC 09/08 PO 1606 Cholecalciferol 2,000 IU DAILY 09/08 1000 AC 09/09 PO 0900 Enoxaparin Sodium 40 MG DAILY 09/08 1000 AC 09/09 SC 0859 Fluticasone 2 SPRAY DAILY 09/08 1000 AC 09/09 Propionate MANUELA 0859 Hydrochlorothiazide 25 MG DAILY 09/08 1000 AC 09/09 PO 0900 Ibuprofen 600 MG ONCE ONE 09/09 1245 DC PO 09/09 1246 Ibuprofen 600 MG Q6P PRN 09/07 1815 AC PO Isosorbide 30 MG DAILY 09/08 1000 AC 09/09 Mononitrate PO 0900 Ketorolac 7.5 MG Q6P PRN 09/07 1815 AC Tromethamine IV Lubiprostone 24 MCG BID 09/07 2200 AC 09/09 PO 0900 Magnesium Oxide 400 MG DAILY 09/08 1000 AC 09/09 PO 0900 Multivitamins 1 TAB DAILY 09/08 1000 AC 09/09 PO 0900 Omeprazole 40 MG DAILY AC 09/08 0700 AC 09/09 PO 0658 Plan - Neurology consult - Obtain echocardiogram - Continue home medications - Suspect Azevedo's palsy in this patient, and not CVA or TIA, given presentation and rapid improvement in symptoms. Pending echocardiogram, patient may be discharged home on Prednisone 60mg for 1 week. She will continue her home ASA and atorvastatin. Follow up with PCP and neurology as outpatient
--- NOTE | 2016-09-09 15:50 | ECHOCARDIOGRAM REPORT ---
HAYDEN DE PAZ Age: 66 : 1950 Gender: F Exam Date: 09/09/2016 14:22 Exam Location: [address] Ht (in): 62 Wt (lb): 170 BSA: 1.87 BP: 130 / 70 Ordering Physician: JERAMY COLBERT MD Referring Physician: Adriana Pro Technologist: Mary Mendiola [facility] Room Number: 180-02 Indications: TIA Rhythm: Sinus Technical Quality: Fair FINDINGS Left Ventricle Normal size left ventricle. Left ventricular wall thickness at upper limits of normal. Normal left ventricular ejection fraction visually estimated at >65 %. No obvious regional wall motion abnormalities. Abnormal relaxation filling pattern of the left ventricle for age (stage 1 diastolic dysfunction). Right Ventricle Normal right ventricular size and function. Catheter/pacemaker wire in the right ventricular cavity. Right Atrium Normal right atrial size. Catheter/pacemaker wire in the right atrial appendage. Left Atrium Normal left atrial size. Mitral Valve Mild thickening/calcification of the mitral valve leaflets. Trace mitral regurgitation. Aortic Valve Diffuse thickening (sclerosis) of the aortic valve cusps without reduced excursion. No aortic stenosis. No aortic regurgitation. Tricuspid Valve Tricuspid valve not well visualized, grossly normal. Trace tricuspid regurgitation. Right ventricular systolic pressure estimated to be within the normal range at <20 mmHg. Pulmonic Valve Pulmonic valve not well visualized, grossly normal. Trace pulmonic regurgitation. Pericardium No pericardial or pleural effusion. Great Vessels Normal aortic root. Borderline dilated ascending aorta. CONCLUSIONS Left ventricular wall thickness at upper limits of normal. Normal left ventricular ejection fraction visually estimated at >65 Abnormal relaxation filling pattern of the left ventricle for age (stage 1 diastolic dysfunction). Catheter/pacemaker wire in the right ventricular cavity. Catheter/pacemaker wire in the right atrial appendage. Mild thickening/calcification of the mitral valve leaflets. Trace mitral regurgitation. Diffuse thickening (sclerosis) of the aortic valve cusps without reduced excursion. No aortic stenosis. Right ventricular systolic pressure estimated to be within the normal range at <20 mmHg. Borderline dilated ascending aorta. Yonathan Mir M.D. (Electronically Signed) Final Date: 09 September 2016 15:49 MEASUREMENTS (Male / Female) Normal Values 2D ECHO LV Diastolic Diameter PLAX 4.0 cm 4.2 - 5.9 / 3.9 - 5.3 cm LV Systolic Diameter PLAX 2.1 cm 2.1 - 4.0 cm LV Fractional Shortening PLAX 47.5 % 25 - 46 % LV Ejection Fraction 2D Teich 79.4 % IVS Diastolic Thickness 1.1 cm LVPW Diastolic Thickness 1.1 cm LV Relative Wall Thickness 0.6 RV Internal Dim ED PLAX 2.8 cm 1.9 - 3.8 cm LVOT Diameter 1.9 cm Aortic Root Diameter 2.8 cm LA Systolic Diameter LX 4.1 cm 3.0 - 4.0 / 2.7 - 3.8 cm LA Volume 26.0 cm 18 - 58 / 22 - 52 cm Ascending Aorta Diameter 3.4 cm DOPPLER AV Peak Velocity 134.0 cm/s AV Peak Gradient 7.2 mmHg AV Mean Velocity 98.0 cm/s AV Mean Gradient 4.0 mmHg AV Velocity Time Integral 25.8 cm LVOT Peak Velocity 114.0 cm/s LVOT Peak Gradient 5.2 mmHg LVOT Mean Velocity 80.0 cm/s LVOT Mean Gradient 3.0 mmHg LVOT Velocity Time Integral 21.5 cm LVOT Stroke Volume 61.0 cm AV Area Cont Eq vti 2.4 cm AV Area Cont Eq pk 2.4 cm MV Peak Velocity 96.4 cm/s MV Peak Gradient 3.7 mmHg MV Mean Velocity 57.3 cm/s MV Mean Gradient 2.0 mmHg Mitral E Point Velocity 66.6 cm/s Mitral A Point Velocity 100.0 cm/s Mitral E to A Ratio 0.7 MV PHT Velocity 78.4 cm/s MV Deceleration [place] 228.0 cm/s MV Pressure Half Time 103.2 ms MV Area PHT 2.1 cm MV Deceleration Time 306.0 ms TR Peak Velocity 120.0 cm/s TR Peak Gradient 5.8 mmHg Right Atrial Pressure 5.0 mmHg Pulmonary Artery Systolic Pressu 10.8 mmHg Right Ventricular Systolic Press 10.8 mmHg PV Peak Velocity 121.0 cm/s PV Peak Gradient 5.9 mmHg PV Mean Velocity 72.9 cm/s PV Mean Gradient 3.0 mmHg PV Velocity Time Integral 21.3 cm LV E' Lateral Velocity 7.4 cm/s Mitral E to LV E' Lateral Ratio 9.0 LV E' Septal Velocity 4.4 cm/s Mitral E to LV E' Septal Ratio 15.2
== END 2016-09-09 17:00 ==
LOC: ENRESERVDT → ENRESERVTM → ERH 10:42 → ERHI 16:03 → ENPENDDIS 16:03 → 1NO 19:44
PROVIDERS: Physician Assistant; Preventive Medicine Public Health & General Preventive Medicine; ADMIT Internal Medicine
DX: R29.810 Facial weakness (principal); R20.0 Anesthesia of skin; R25.1 Tremor, unspecified; R00.1 Bradycardia, unspecified; I10 Essential (primary) hypertension; E78.5 Hyperlipidemia, unspecified; Z85.3 Personal history of malignant neoplasm of breast; Z95.0 Presence of cardiac pacemaker; Z79.82 Long term (current) use of aspirin
CPT/HCPCS: 2000; 86618; 82436; 93005; 93010; 93306; 96372; G0378; J1650; J3490